=== PATIENT | male | born 1985 | race Caucasian/White ===

== ENCOUNTER 2024-07-19 22:18 | Emergency (ER) | payer BC ==
[2024-07-19] MEDS ORDERED: SODIUM CHLORIDE 0.9% 1,000 ML BAG ONE (22:30)
== END 2024-07-20 02:58 | disposition home or self-care (01) ==
LOC: EC 22:18
DX: E86.0 Dehydration (principal)
CPT/HCPCS: 71046; 93005; 96360; 96361; 99284

== ENCOUNTER 2025-05-03 08:20 | Day surgery (SDC) | payer BC ==
[2025-05-03] MEDS: IV FLUID CONTINUATION 1,000 ML IV ONE ×2 (08:41→12:10)
[2025-05-03] MEDS ORDERED: fentaNYL (PF) 50 MCG/ML 2 ML AMP IV PRN (08:48)
[2025-05-03] MEDS ORDERED: SCOPOLAMINE 1 MG/72 HR PATCH TRANSDERM ONE (08:48)
[2025-05-03] MEDS: LACTATED RINGERS 1,000 ML IV SCH (08:55)
[2025-05-03] MEDS: ONDANSETRON 4 MG/2 ML VIAL IVP ONE (09:05)
[2025-05-03] MEDS: DEXAMETHASONE SOD PHOSPHATE 4 MG/ML 1 ML VIAL IV ONE (09:06)
[2025-05-03] MEDS: MIDAZOLAM 2 MG/2 ML VIAL IV PRN (09:30)
[2025-05-03] MEDS: fentaNYL (PF) 50 MCG/ML 2 ML AMP IVP STA (09:30)
[2025-05-03] MEDS ORDERED: SUCCINYLCHOLINE CHLORIDE 200 MG/10 ML VIAL IV ONE (09:56)
[2025-05-03] MEDS ORDERED: LIDOCAINE 1% INJ 10MG/ML (20 ML MDV) ONE (09:56)
[2025-05-03] MEDS ORDERED: DEXAMETHASONE SOD PHOSPHATE 4 MG/ML 1 ML VIAL ONE (09:56)
[2025-05-03] MEDS ORDERED: ePHEDrine 50 MG/ML 1 ML VIAL ONE (09:56)
[2025-05-03] MEDS ORDERED: ROCURONIUM 10 MG/ML (5 ML VIAL) IV ONE (09:56)
[2025-05-03] MEDS ORDERED: MIDAZOLAM 2 MG/2 ML VIAL ONE (09:56)
[2025-05-03] MEDS ORDERED: ROPIVACAINE 5 MG/ML 30 ML VIAL ONE (09:56)
[2025-05-03] MEDS ORDERED: fentaNYL (PF) 50 MCG/ML 2 ML AMP ONE (09:56)
[2025-05-03] MEDS ORDERED: PROPOFOL 10 MG/ML 20 ML VIAL IV ONE (09:56)
[2025-05-03] MEDS: ceFAZolin 2 GM in DEXTROSE 5% IN WATER 50 ML IVPB PRN (10:00)
[2025-05-03] MEDS: ceFAZolin 1,000 MG in SODIUM CHLORIDE 0.9% 1,000 ML IRRIGATION ONE (10:19)
[2025-05-03] MEDS: LACTATED RINGERS 1,000 ML IV ONE (10:41)
--- NOTE | 2025-05-03 10:41 | P.ANPRN ---
Procedure Note - Anesthesia - Nerve Block Performed Right Popliteal Single Time Out Performed: Yes ([id number]) Date of Procedure: 05/03/25 Procedure Start Time: : Procedure Stop Time: :36 Location of Patient: PreOp Indication: Acute Post-Operative Pain, Requested by Surgeon Specifically requested for management of pain by DrAnsley: Naresh Peguero Sedation Type: Sedate with meaningful contact maintained Preparation: Sterile Prep Position: Left Lateral Catheter: None Needle Types: Pajunk Needle Gauge: 21 Ultrasound used to visualize needle placement: Yes Ultrasound used to observe medication spread: Yes Injectate: 0.5% Ropivacaine (see comment for volume) (30cc+decadron 4mg) Blood Aspirated: No Pain Paresthesia on Injection Noted: No Resistance on Injection: Normal Image Stored and Saved: Yes Events: Uneventful and Well Tolerated
[2025-05-03 11:30] VITALS: TEMP 97.2
--- NOTE | 2025-05-03 11:39 | P.OP ---
Date of Procedure: 05/03/25 Preoperative Diagnosis: Displaced calcaneal fracture right foot Postoperative Diagnosis: Same Procedure(s) Performed: Percutaneous fixation right calcaneus fracture Implants: Synthes 4.0 cannulated screw x 1, 5.5 mm partially-threaded screws x 2, 5.5 mm fully threaded screw x 1 Anesthesia: BRYN Surgeon: Naresh Peguero Estimated Blood Loss (ml): 3 Pathology: none sent Condition: stable Disposition: PACU Description of Procedure: Prior to the patient being brought to the room, anesthesia administered nerve block on the right lower extremity. The patient was brought to the op room placed on table supine position. Timeout was taken to confirm correct patient identifiers, correct laterality of surgery, and correct procedure. Once all staff in the room was in agreement the timeout, the patient was induced placed under general anesthesia. The patient was then rolled into the lateral decubitus position on the left side with beanbag maintaining positioning. Pillows were placed between the legs and arms. Once positioning was satisfactory, a tourniquet was placed on the right thigh. The right foot was prepped and draped usual manner. The leg was exsanguinated and the tourniquet plated to 250 mmHg. Attention was directed to the initial lateral view under fluoroscopy. This was for the placement of the screw for the constant fragment. It was positioned laterally just inferior to the subtalar joint and the lateral process of the talus. The wire was advanced lateral to medial into the sustentaculum desmond. Lateral and axial view showed proper placement the wire. Drilling was done for a 4.0 cannulated screw. Screw was inserted over the wire and advanced until it compressed the fracture in the head engaged lateral cortex of the calcaneus. Fluoroscopic views showed that the screw was properly aligned. The next 2 screws were for the compression of the tongue type fracture. Guidewires were placed on the dorsal superior aspect of the calcaneal body on either side of the Achilles tendon. The wires were advanced distally and plantarly across the fracture line. Fluoroscopy showed that both wires and proper were in proper alignment. Small stab incisions were made through the skin and bluntly dissected down to the calcaneus. A tissue protector was placed over the wire and then drilling was performed for both screws. The medial screw was placed normally that had good compression once the screw was bicortical. The other screw required a washer around the head. However fixation was excellent with good compression and bicortical fixation. Fluoroscopic visualization on AP and axial views showed proper placement of the screws. The last screw was a plantar lateral screw for the anterior process fracture, however there was a noted fracture from the posterior medial tuberosity. So the guidewire was placed over that fracture and then angled anteriorly and laterally to capture the anterior process. Fluoroscopic imaging on axial and lateral view showed proper placement of the wire. A small stab incision was made through the skin and bluntly dissected down to the heel. A fully threaded screw was placed over the wire and advanced until the head engaged the posterior cortex of the calcaneus. Final fluoroscopic imaging showed anatomic alignment of the calcaneus with proper placement of all hardware in both lap axial and lateral views. All wounds were thoroughly irrigated with antibiotic saline. All inci sions were closed with 3-0 nylon. Arthrex jumpstart was placed over the incisions. A dry sterile dressing was applied around the foot. The tourniquet was released and capillary refill returned to all digits on the foot. The patient was placed in a well-padded, well molded plaster posterior mold/sugar- tong splint. The foot and ankle were held in neutral position until the splint was dried. Anesthesia was reversed and the patient was taken recovery with vital signs stable.
--- NOTE | 2025-05-03 11:39 | FL ---
EXAMINATION TYPE: FL guidance operating room, XR ankle limited RT DATE OF EXAM: 05/03/2025 CLINICAL INDICATION: Male, 39 years old with history of S92.061A CLOSED DISPLACED INTRA-ARTICULAR FRA CTURE, calcaneus fracture TECHNIQUE: Fluoroscopy. Intraoperative limited views right ankle COMPARISON: CT right ankle 3 days ago. FINDINGS: Fluoroscopic guidance was provided during open reduction and internal fixation procedure p erformed by Dr. Peguero. A total of 38 seconds of fluoroscopic time was utilized during the procedure. Total DAP = 170.71. Images acquired show placement of 3 large fixating screws through comminuted fracture of the calcaneu s. IMPRESSION: As Above. [facility], , 05/03/2025 11:37 AM
[2025-05-03 12:21] VITALS: RESP 16
[2025-05-03 13:38] VITALS: BP 138/83; PULSE 70
== END 2025-05-03 13:40 | disposition home or self-care (01) ==
LOC: OR 08:20
PROVIDERS: ATTEND Podiatrist
DX: S92.061A Displaced intraarticular fracture of right calcaneus, initial encounter for closed fracture (principal); G89.18 Other acute postprocedural pain; Z87.891 Personal history of nicotine dependence; Z88.5 Allergy status to narcotic agent; W17.89XA Other fall from one level to another, initial encounter; Y93.89 Activity, other specified; Y92.59 Other trade areas as the place of occurrence of the external cause; Y99.9 Unspecified external cause status
CPT/HCPCS: 28406; 64445; 73600; C1713; J2250; J0330; J1100; J0690 ×2; J2405; J2003; J3010; J2795; J2704